=== PATIENT | male | born 1970 | race American Indian/Alaskan Native ===

== ENCOUNTER 2017-09-03 16:45 | Emergency (ER) | payer SELFPAY ==
[2017-09-03] MEDS ORDERED: BOOSTRIX IM ONE (22:03)
[2017-09-03] MEDS ORDERED: TYLENOL PO ONE (22:03)
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
[2017-09-03 23:55] VITALS: BP 142/99
== END 2017-09-04 00:11 | disposition home or self-care (01) ==
LOC: ED 16:45
DX: S05.01XA Injury of conjunctiva and corneal abrasion without foreign body, right eye, initial encounter (principal); Y08.89XA Assault by other specified means, initial encounter; Y93.89 Activity, other specified; Y99.8 Other external cause status; Y92.488 Other paved roadways as the place of occurrence of the external cause
CPT/HCPCS: 70450; 70480; 90471; 90715